=== PATIENT | male | born 1960 ===

== ENCOUNTER 2022-12-11 12:58 | Day surgery (SDC) | payer OTHER ==
[~2022-12-11] VITALS: Ht 167.6 cm; Wt 74.8 kg
--- NOTE | 2022-12-11 13:54 | NUR ---
12/11/22 5056 SKYLAR GONGORA DISCUSSED CASE WITH , DECISION MADE TO USE POM MASK INSTEAD OF NASAL CANNULA D/T PATIENT HX OF SMOKING AND WHEEZES IN BASES DESPITE COUGHING AND CLEARING.
--- NOTE | 2022-12-11 14:31 | NUR ---
12/11/22 1431 SKYLAR GONGORA NACL 5.5 USED FOR INJECTION
[2022-12-11 14:58] VITALS: BP 134/87
== END 2022-12-11 15:05 | disposition home or self-care (01) ==
LOC: ORSCSDS 12:58
PROVIDERS: Specialist
PROC: 0DBP8ZX Excision of Rectum, Via Natural or Artificial Opening Endoscopic, Diagnostic (ICD-10-PCS; principal; 2022-12-11 14:15)
PROC: 0DBN8ZX Excision of Sigmoid Colon, Via Natural or Artificial Opening Endoscopic, Diagnostic (ICD-10-PCS; principal; 2022-12-11 14:15)
PROC: 0DBL8ZX Excision of Transverse Colon, Via Natural or Artificial Opening Endoscopic, Diagnostic (ICD-10-PCS; principal; 2022-12-11 14:15)
DX: Z12.11 Encounter for screening for malignant neoplasm of colon (principal); Z86.010 Personal history of colon polyps; D12.3 Benign neoplasm of transverse colon; D12.5 Benign neoplasm of sigmoid colon; D12.8 Benign neoplasm of rectum; K62.1 Rectal polyp; K64.8 Other hemorrhoids; F17.210 Nicotine dependence, cigarettes, uncomplicated
CPT/HCPCS: 88305; J2704; J7120; Q9968